=== PATIENT | female | born 1950 | race Caucasian/White ===

== ENCOUNTER → 2017-08-10 | Outpatient (CLI) | payer OTHER | END | disposition home or self-care (01) | LOC: OIH 11:32 | PROVIDERS: ATTEND Family Medicine | DX: M43.17 Spondylolisthesis, lumbosacral region (principal); I70.0 Atherosclerosis of aorta; I10 Essential (primary) hypertension | CPT/HCPCS: 71046; 72100 ==

== ENCOUNTER → 2017-08-20 | Outpatient (CLI) | payer OTHER | END | disposition home or self-care (01) | LOC: OIH 15:53 | PROVIDERS: ATTEND Family Medicine | DX: M85.88 Other specified disorders of bone density and structure, other site (principal); M25.551 Pain in right hip | CPT/HCPCS: 73502; 77073 ==

== ENCOUNTER 2017-08-21 22:15 | Emergency (ER) | payer OTHER ==
[2017-08-21] MEDS ORDERED: DIPHENHYDRAMINE HCL 25 MG CAPSULE ONE (22:36)
[2017-08-21] MEDS ORDERED: CEPHALEXIN 500 MG CAPSULE ONE (22:36)
[2017-08-21] MEDS ORDERED: METOPROLOL TARTRATE 50 MG TAB ONE (22:36)
== END 2017-08-22 00:19 | disposition home or self-care (01) ==
LOC: EDH 22:15
DX: T36.8X5A Adverse effect of other systemic antibiotics, initial encounter (principal); I10 Essential (primary) hypertension; E78.5 Hyperlipidemia, unspecified; Z88.2 Allergy status to sulfonamides; Z90.710 Acquired absence of both cervix and uterus; Z98.890 Other specified postprocedural states; Y92.098 Other place in other non-institutional residence as the place of occurrence of the external cause
CPT/HCPCS: 99284; Q0163

== ENCOUNTER 2018-06-16 01:53 | Emergency (ER) | payer OTHER ==
[~2018-06-16 01:53] MED LIST: AEC81 PO; BACL10TA PO; HYDR-4457 PO; LINA145C PO; LOSA25TA41 PO; METO50TA18 PO; PANT40TA25 PO; PRED20TA3 PO; SIMV10TA6 PO
[2018-06-16 02:35] LABS: BASOPHILS % (AUTO) 0.8 % (0.0-5.0); EOSINOPHILS % (AUTO) 0.9 % (0.0-8.0); HEMATOCRIT 39.4 % (36-48); LYMPHOCYTES % (AUTO) 33.6 % (21.0-51.0); MEAN CORPUSCULAR HEMOGLOBIN 28.1 pg (27.0-33.0); MEAN CORPUSCULAR HGB CONC 32.8 g/dL (32.0-36.0); MEAN CORPUSCULAR VOLUME 85.8 fL (79-99); MONOCYTES % (AUTO) 7.9 % (3.0-13.0); NEUTROPHILS % (AUTO) 56.8 % (40.0-77.0); PLATELET COUNT (AUTO) 207 K/uL (130-400); RED BLOOD CELL COUNT(AUTO) 4.59 MIL/uL (4.00-5.50); RED CELL DISTRIBUTION WIDTH 12.4 % (11.0-15.5); WHITE BLOOD COUNT (AUTO) 10.3 K/uL (4.8-10.8)
[2018-06-16 02:44] LABS: CREATININE 1.2 mg/dL (0.5-1.5); POTASSIUM 4.3 mmol/L (3.5-5.1)
[2018-06-16 02:49] LABS: ALBUMIN 3.4 g/dL (3.5-5.0); BILIRUBIN,TOTAL 0.2 mg/dL (0.2-1.0); TOTAL PROTEIN, SERUM 7.1 g/dL (6.0-8.3)
[2018-06-16] MEDS ORDERED: KETOROLAC TROMETHAMINE 30MG/ML ONE (02:54)
[2018-06-16] MEDS ORDERED: DIAZEPAM 5 MG TABLET ONE (02:54)
== END 2018-06-16 04:53 | disposition home or self-care (01) ==
LOC: EDH 01:53
DX: M54.6 Pain in thoracic spine (principal); E78.5 Hyperlipidemia, unspecified; I10 Essential (primary) hypertension; E11.9 Type 2 diabetes mellitus without complications; Z90.710 Acquired absence of both cervix and uterus; Z88.1 Allergy status to other antibiotic agents; Z88.2 Allergy status to sulfonamides
CPT/HCPCS: 36415; 71045; 80053; 82550; 84484; 85025; 93005; 96374; 99284; J1885

== ENCOUNTER → 2018-11-29 | Outpatient (CLI) | payer OTHER | END | disposition home or self-care (01) | LOC: OIH 14:20 | PROVIDERS: ATTEND Family Medicine | DX: S79.811A Other specified injuries of right hip, initial encounter (principal); M25.551 Pain in right hip; X58.XXXA Exposure to other specified factors, initial encounter; Y93.89 Activity, other specified; Y92.89 Other specified places as the place of occurrence of the external cause; Y99.8 Other external cause status | CPT/HCPCS: 73502 ==

== ENCOUNTER 2019-04-02 12:55 | Emergency (ER) | payer OTHER ==
[~2019-04-02 12:55] MED LIST changes: -SIMV10TA6 PO; +SIMV10TA97 PO
[2019-04-02 13:27] LABS: BASOPHILS % (AUTO) 0.8 % (0.0-5.0); EOSINOPHILS % (AUTO) 1.2 % (0.0-8.0); HEMATOCRIT 41.1 % (36-48); LYMPHOCYTES % (AUTO) 31.2 % (21.0-51.0); MEAN CORPUSCULAR HEMOGLOBIN 29.7 pg (27.0-33.0); MEAN CORPUSCULAR HGB CONC 33.6 g/dL (32.0-36.0); MEAN CORPUSCULAR VOLUME 88.5 fL (79-99); MONOCYTES % (AUTO) 13.4 % (3.0-13.0); NEUTROPHILS % (AUTO) 53.4 % (40.0-77.0); PLATELET COUNT (AUTO) 193 K/uL (130-400); RED BLOOD CELL COUNT(AUTO) 4.64 MIL/uL (4.00-5.50); RED CELL DISTRIBUTION WIDTH 12.8 % (11.0-15.5); WHITE BLOOD COUNT (AUTO) 7.4 K/uL (4.8-10.8)
[2019-04-02 13:30] LABS: APPEARANCE,URINE Clear (CLEAR); BILIRUBIN,URINE Negative (NEGATIVE); COLOR,URINE Yellow (YELLOW); GLUCOSE, URINE (UA) Negative (NEGATIVE); KETONES,URINE Negative (NEGATIVE); LEUKOCYTE ESTERASE ,URINE Small (NEGATIVE); NITRATE,URINE Negative (NEGATIVE); OCCULT BLOOD,URINE Negative (NEGATIVE); PROTEIN,URINE Negative (NEGATIVE); UROBILINOGEN,URINE 0.2 mg/dL (0.2-1.0)
[2019-04-02 13:34] LABS: CREATININE 0.9 mg/dL (0.5-1.5)
[2019-04-02 13:38] LABS: INR 0.89 (0.85-1.15); PARTIAL THROMBOPLASTIN TIME 27.5 SEC (26.3-35.5); PROTHROMBIN TIME 9.4 SEC (9.6-11.6)
[2019-04-02 13:40] LABS: BACTERIA,URINE Rare /HPF (None Seen); RBC,URINE None Seen /HPF (0-1)
[2019-04-02 13:40] LABS: ALBUMIN 3.4 g/dL (3.5-5.0); BILIRUBIN,TOTAL 0.4 mg/dL (0.2-1.0); TOTAL PROTEIN, SERUM 7.4 g/dL (6.0-8.3)
[2019-04-02 14:02] LABS: B-TYPE NATRIURETIC PEPTIDE 51 pg/mL (0-100)
[2019-04-02] MEDS ORDERED: LEVOFLOXACIN 500 MG TABLET ONE (16:32)
== END 2019-04-02 16:53 | disposition home or self-care (01) ==
LOC: EDH 12:55
DX: A09 Infectious gastroenteritis and colitis, unspecified (principal); N39.0 Urinary tract infection, site not specified; I10 Essential (primary) hypertension; E86.0 Dehydration; E11.9 Type 2 diabetes mellitus without complications; E78.5 Hyperlipidemia, unspecified; Z90.710 Acquired absence of both cervix and uterus; Z72.0 Tobacco use; Z88.2 Allergy status to sulfonamides; Z88.1 Allergy status to other antibiotic agents
CPT/HCPCS: 36415; 71045; 76705; 80053; 81001; 82150; 82550; 83690; 83880; 84484; 85025; 85610; 85730; 87077; 87088; 87186; 87804; 93005

== ENCOUNTER 2019-09-08 17:05 | Inpatient (IN) | payer OTHER ==
[~2019-09-08] VITALS: Ht 165.1 cm; Wt 77.1 kg
[~2019-09-08 17:05] MED LIST changes: -CETI10TA57 PO; -GABA-529 PO; -MECL-183 PO; -MULT-1258 PO; -PANT40TA25 PO; +PANT40TA54 PO
[2019-09-08] MEDS ORDERED: NITROGLYCERIN 1GM/1 INCH PACKET TD ONE (17:11)
[2019-09-08] MEDS ORDERED: ASPIRIN 325 MG TABLET ONE (17:11)
[2019-09-08 17:36] LABS: BASOPHILS % (AUTO) 0.4 % (0.0-5.0); HEMATOCRIT 40.8 % (36-48); LYMPHOCYTES % (AUTO) 21.9 % (21.0-51.0); MEAN CORPUSCULAR HEMOGLOBIN 28.3 pg (27.0-33.0); MEAN CORPUSCULAR HGB CONC 31.4 g/dL (32.0-36.0); MEAN CORPUSCULAR VOLUME 90.3 fL (79-99); MONOCYTES % (AUTO) 6.3 % (3.0-13.0); PLATELET COUNT (AUTO) 226 K/uL (130-400); RED BLOOD CELL COUNT(AUTO) 4.52 MIL/uL (4.00-5.50); RED CELL DISTRIBUTION WIDTH 13.3 % (11.0-15.5); WHITE BLOOD COUNT (AUTO) 11.3 K/uL (4.8-10.8)
[2019-09-08 17:37] LABS: INR 0.87 (0.85-1.15); PARTIAL THROMBOPLASTIN TIME 26.5 SEC (26.3-35.5); PROTHROMBIN TIME 9.4 SEC (9.6-11.6)
[2019-09-08 17:58] LABS: B-TYPE NATRIURETIC PEPTIDE 45 pg/mL (0-100)
[2019-09-08 18:01] LABS: ALBUMIN 3.5 g/dL (3.5-5.0); BILIRUBIN,TOTAL 0.3 mg/dL (0.2-1.0); TOTAL PROTEIN, SERUM 6.9 g/dL (6.0-8.3)
[2019-09-08 19:20] LABS: APPEARANCE,URINE Clear (CLEAR); BILIRUBIN,URINE Negative (NEGATIVE); COLOR,URINE Yellow (YELLOW); GLUCOSE, URINE (UA) Negative (NEGATIVE); KETONES,URINE Negative (NEGATIVE); LEUKOCYTE ESTERASE ,URINE Trace (NEGATIVE); NITRATE,URINE Negative (NEGATIVE); OCCULT BLOOD,URINE Negative (NEGATIVE); PROTEIN,URINE Negative (NEGATIVE)
[2019-09-08 19:33] LABS: BACTERIA,URINE Moderate /HPF (None Seen); RBC,URINE 0-1 /HPF (0-1); SQUAMOUS EPITHELIAL CELL,UR Few /HPF (0-2)
[2019-09-08] MEDS ORDERED: ZOLPIDEM TARTRATE 5 MG TAB PO PRN (21:15)
[2019-09-08] MEDS ORDERED: GLUCAGON 1MG KIT 1 MG ML IM PRN (21:15)
[2019-09-08] MEDS ORDERED: GUAIFENESIN SUGAR-FREE 100 MG/5 ML UDCUP PO PRN (21:15)
[2019-09-08] MEDS ORDERED: LACTULOSE 20 GM/30 ML UDCUP PO PRN (21:15)
[2019-09-08] MEDS ORDERED: POTASSIUM CHLORIDE 10% ELIXIR 20 MEQ/15 ML UDCUP PO PRN (21:15)
[2019-09-08] MEDS ORDERED: NITROGLYCERIN 0.4 MG SL TAB SL PRN (21:15)
[2019-09-08] MEDS ORDERED: MAG HYDROX/AL HYDROX/SIMETH ES 30 ML SUSP UDCUP PO PRN (21:15)
[2019-09-08] MEDS ORDERED: SODIUM CHLORIDE 0.9% 10 ML VIAL IVP SCH (21:15)
[2019-09-08] MEDS ORDERED: DEXTROSE 50%-WATER 50 ML DISP.SYRIN IV PRN (21:15)
[2019-09-08] MEDS ORDERED: ACETAMINOPHEN 325 MG TAB PO PRN (21:15)
[2019-09-08] MEDS ORDERED: GUAIFENESIN-DM 200/20 MG 10 ML PO PRN (21:15)
[2019-09-08] MEDS ORDERED: LIDOCAINE HCL-MPF 1% 2ML VIAL IJ PRN (21:15)
[2019-09-08] MEDS ORDERED: DIPHENHYDRAMINE HCL 25 MG CAPSULE PO PRN (21:15)
[2019-09-08] MEDS ORDERED: POTASSIUM CHLORIDE 20MEQ/100ML 100 ML IV PRN (21:15)
[2019-09-08] MEDS ORDERED: ONDANSETRON HCL 4 MG/2 ML VIAL IVP PRN (21:15)
[2019-09-08] MEDS ORDERED: POTASSIUM CHLORIDE 20 MEQ ERTAB PO PRN (21:15)
[2019-09-08] MEDS ORDERED: CLONIDINE HCL 0.1 MG TABLET PO PRN (21:15)
[2019-09-08] MEDS ORDERED: DiphenhydrAMINE HCL 50 MG/ML VIAL IVP PRN (21:15)
[2019-09-08] MEDS: NITROGLYCERIN 1GM/1 INCH PACKET TD SCH (21:30)
[2019-09-08 22:35] VITALS: BP 181/75
[2019-09-08] MEDS ORDERED: MULT-1258 PO (23:21)
[2019-09-08] MEDS ORDERED: GABA-529 PO (23:21)
[2019-09-08] MEDS ORDERED: CETI10TA57 PO (23:21)
[2019-09-08] MEDS ORDERED: MECL-183 PO (23:21)
[2019-09-08] MEDS: ACETAMINOPHEN 325 MG TAB PO PRN (23:59)
[2019-09-09 00:42] LABS: CREATINE KINASE, TOTAL 69 U/L (21-232); MYOGLOBIN 30 ng/mL (10-92); TROPONIN I < 0.04 ng/mL (0.00-0.06)
[2019-09-09 03:01] VITALS: BP 164/84
[2019-09-09 03:41] LABS: HEMATOCRIT 38.9 % (36-48); MEAN CORPUSCULAR HGB CONC 31.4 g/dL (32.0-36.0); MEAN CORPUSCULAR VOLUME 89.4 fL (79-99); RED BLOOD CELL COUNT(AUTO) 4.35 MIL/uL (4.00-5.50); RED CELL DISTRIBUTION WIDTH 13.2 % (11.0-15.5)
[2019-09-09 04:05] LABS: ALBUMIN 3.4 g/dL (3.5-5.0); BILIRUBIN,TOTAL 0.7 mg/dL (0.2-1.0); MAGNESIUM 2.1 mg/dL (1.80-2.40); PHOSPHORUS 3.6 mg/dL (2.5-4.9); POTASSIUM 4.1 mmol/L (3.5-5.1); TOTAL PROTEIN, SERUM 6.7 g/dL (6.0-8.3)
[2019-09-09] MEDS: NITROGLYCERIN 1GM/1 INCH PACKET TD SCH ×3 (04:55→21:30)
[2019-09-09] MEDS: ACETAMINOPHEN 325 MG TAB PO PRN (04:56)
[2019-09-09] MEDS: INSULIN R PO SS2 SQ SCH ×4 (05:29→20:31)
[2019-09-09] MEDS ORDERED: REGADENOSON 0.4 MG/5 ML PF SYG IVP SCH ×2 (08:00→11:45)
[2019-09-09 08:38] VITALS: BP 137/77
[2019-09-09] MEDS: ENOXAPARIN SODIUM 30 MG/0.3 ML SQ SCH ×2 (09:00→22:09)
[2019-09-09] MEDS: FAMOTIDINE 20MG TAB 20 MG TAB PO SCH (09:26)
[2019-09-09] MEDS: METOPROLOL TARTRATE 50 MG TAB PO SCH ×2 (09:26→22:07)
[2019-09-09 11:00] VITALS: BP 145/73
--- NOTE | 2019-09-09 11:04 | NUR ---
CM NOTE/IA MEET WITH PATIENT IN ROOM. PER PATIENT, LIVES WITH SPOUSE AND SISTER, IS INDEPENDENT WITH ADLS, HAS USE OF CANE, ROLLATOR WALKER, AND SHOWER CHAIR, DRIVES, AND FEELS SAFE TO RETURN HOME ONCE DISCHARGED FROM HOSPITAL. Addendum: 09/09/19 at 1105 by MAGAN KISER RN CM Amended: Links added.
[2019-09-09 16:00] VITALS: BP 138/77
[2019-09-09] MEDS: ASPIRIN 325 MG TABLET PO SCH (16:03)
[2019-09-09] MEDS ORDERED: CEFTRIAXONE SODIUM 500 MG VIAL IV SCH (16:45)
[2019-09-09] MEDS ORDERED: MECLIZINE HCL 12.5 MG TABLET PO PRN (17:00)
[2019-09-09] MEDS ORDERED: LEVOFLOXACIN 500 MG/D5W 100 ML 100 ML IV SCH (17:00)
[2019-09-09 19:38] VITALS: BP 140/76
[2019-09-09] MEDS: GABAPENTIN 100 MG CAPSULE PO SCH (22:07)
[2019-09-09 23:51] VITALS: BP 155/65
[2019-09-10 04:00] VITALS: BP 126/74
[2019-09-10] MEDS: NITROGLYCERIN 1GM/1 INCH PACKET TD SCH ×2 (05:30→13:30)
[2019-09-10 07:30] VITALS: BP 122/75
[2019-09-10] MEDS: INSULIN R PO SS2 SQ SCH ×3 (07:30→16:30)
--- NOTE | 2019-09-10 07:58 | NUR ---
PATIENT UPDATE No chest pain, no shortness of breath. Abdominal ultrasound done. Refused the nitropaste ointment last night and this am bec of severe headaches. Looking forward to getting discharged today.
[2019-09-10] MEDS: ENOXAPARIN SODIUM 30 MG/0.3 ML SQ SCH (09:00)
[2019-09-10] MEDS ORDERED: Vitamin B Complex/Vit C/Folic Acid PO SCH (09:00)
[2019-09-10] MEDS ORDERED: LOSARTAN 50 MG TABLET PO SCH (09:00)
[2019-09-10] MEDS: GABAPENTIN 100 MG CAPSULE PO SCH ×2 (10:18→14:31)
[2019-09-10] MEDS: FAMOTIDINE 20MG TAB 20 MG TAB PO SCH (10:18)
[2019-09-10] MEDS: METOPROLOL TARTRATE 50 MG TAB PO SCH (10:18)
[2019-09-10] MEDS: ASPIRIN 325 MG TABLET PO SCH (10:19)
[2019-09-10 11:14] LABS: HEMATOCRIT 40.8 % (36-48); MEAN CORPUSCULAR HEMOGLOBIN 28.7 pg (27.0-33.0); MEAN CORPUSCULAR HGB CONC 31.6 g/dL (32.0-36.0); MEAN CORPUSCULAR VOLUME 90.9 fL (79-99); PLATELET COUNT (AUTO) 209 K/uL (130-400); RED BLOOD CELL COUNT(AUTO) 4.49 MIL/uL (4.00-5.50); RED CELL DISTRIBUTION WIDTH 13.5 % (11.0-15.5); WHITE BLOOD COUNT (AUTO) 7.1 K/uL (4.8-10.8)
[2019-09-10 11:29] LABS: POTASSIUM 4.2 mmol/L (3.5-5.1)
[2019-09-10 11:30] VITALS: BP 114/61
[2019-09-10 12:05] LABS: EOSINOPHILS % (MANUAL) 2 % (1-6); LYMPHOCYTES % (MANUAL) 38 % (22-44); MAN.DIFF COMMENT-IMPRESSION MANUAL DIFFERENTIAL; MONOCYTES % (MANUAL) 12 % (2-9); PLATELET MORPHOLOGY COMMENT ADEQUATE; SEGMENTED NEUTROPHILS % 48 % (40-70)
[2019-09-10 13:14] LABS: ALBUMIN 3.4 g/dL (3.5-5.0); BILIRUBIN,TOTAL 0.4 mg/dL (0.2-1.0); TOTAL PROTEIN, SERUM 7.1 g/dL (6.0-8.3)
[2019-09-10 15:30] VITALS: BP 142/63
--- NOTE | 2019-09-10 17:25 | NUR ---
DISCHARGE INSTRUCTIONS DISCHARGE INSTRUCTIONS GIVEN TO PATIENT, VERBALIZED UNDERSTANDING. PRESCRIPTION GIVEN FOR LEVAQUIN. PATIENT IS TO FOLLOW UP WITH DR LUO THROUGH [facility]LE[facility] ON THURSDAY. IV DISCONTINUED. MAITE KAMARA.
== END 2019-09-10 17:48 | disposition home or self-care (01) | DRG 311 ==
LOC: EDH 17:05 → EDHIP 20:50 → 4CH 22:17 → 4AH 09-09 12:20 → 4CH 09-09 12:25
PROVIDERS: ADMIT Family Medicine; ATTEND Family Medicine
DX: I20.9 Angina pectoris, unspecified (principal); N39.0 Urinary tract infection, site not specified; E11.9 Type 2 diabetes mellitus without complications; E78.5 Hyperlipidemia, unspecified; I10 Essential (primary) hypertension; K76.9 Liver disease, unspecified; K82.8 Other specified diseases of gallbladder; N28.9 Disorder of kidney and ureter, unspecified; Z90.710 Acquired absence of both cervix and uterus; Z88.2 Allergy status to sulfonamides; Z88.8 Allergy status to other drugs, medicaments and biological substances
CPT/HCPCS: 36415; 71045; 76700; 77067; 78452; 80053; 81001; 82550; 82948; 83690; 83735; 83874; 83880; 84100; 84484; 85025; 85027; 85610; 85730; 87077; 87088; 87186; 93005; 93017; 93306; 93356; 96374; 99291; A9500; G0378; J0696; J1650; J1956; J2405; J2785

== ENCOUNTER → 2019-09-08 | Outpatient (CLI) | payer OTHER ==
[~2019-09-08] MED LIST changes: +CETI10TA57 PO; +GABA-529 PO; +MECL-183 PO; +MULT-1258 PO
== END | disposition home or self-care (01) ==
LOC: RAH 10:12
PROVIDERS: ATTEND Family Medicine
DX: Z12.31 Encounter for screening mammogram for malignant neoplasm of breast (principal)
CPT/HCPCS: 77067

== ENCOUNTER → 2019-10-07 | Outpatient (CLI) | payer OTHER ==
[~2019-10-07] MED LIST changes: -BACL10TA PO; +CETI10TA57 PO; +GABA-529 PO; -HYDR-4457 PO; -LINA145C PO; +MECL-183 PO; +MULT-1258 PO; -PANT40TA54 PO; -PRED20TA3 PO; +SINCALIDE 5 MCG ML VIAL IV ONE
== END | disposition home or self-care (01) ==
LOC: RAH 10:52
PROVIDERS: ATTEND Family Medicine
DX: K81.0 Acute cholecystitis (principal); Q44.6 Cystic disease of liver
CPT/HCPCS: 78227; A9537; J2805

== ENCOUNTER → 2019-10-21 | Outpatient (CLI) | payer OTHER ==
[~2019-10-21] MED LIST changes: +IOHEXOL 350 MG/ML 100ML INFUS..BTL IV ONE; -SINCALIDE 5 MCG ML VIAL IV ONE
== END | disposition home or self-care (01) ==
LOC: RAH 07:45
PROVIDERS: ATTEND Family Medicine
DX: K44.9 Diaphragmatic hernia without obstruction or gangrene (principal); N28.1 Cyst of kidney, acquired; Q44.6 Cystic disease of liver; J98.11 Atelectasis
CPT/HCPCS: 74170; 76770; Q9967

== ENCOUNTER 2019-11-06 02:33 | Emergency (ER) | payer OTHER ==
[~2019-11-06 02:33] MED LIST changes: -IOHEXOL 350 MG/ML 100ML INFUS..BTL IV ONE
[2019-11-06] MEDS ORDERED: ONDANSETRON ODT 4 MG TAB ONE (03:04)
[2019-11-06] MEDS ORDERED: HYDROCODONE/ACETAMINOPHEN 10/325 MG TAB ONE (03:04)
[2019-11-06] MEDS ORDERED: MORPHINE SULFATE 8 MG/ML VIAL ONE (04:10)
== END 2019-11-06 06:06 | disposition home or self-care (01) ==
LOC: EDH 02:33
DX: B02.9 Zoster without complications (principal); E11.9 Type 2 diabetes mellitus without complications; E78.5 Hyperlipidemia, unspecified; I10 Essential (primary) hypertension; Z87.891 Personal history of nicotine dependence; Z90.49 Acquired absence of other specified parts of digestive tract; Z90.710 Acquired absence of both cervix and uterus; Z88.2 Allergy status to sulfonamides; Z88.1 Allergy status to other antibiotic agents
CPT/HCPCS: 96372; 99283; J2270

== ENCOUNTER 2020-12-02 11:28 | Observation (INO) | payer OTHER ==
[~2020-12-02] VITALS: Ht 165.1 cm; Wt 84.8 kg
[~2020-12-02 11:28] MED LIST changes: -MECL-183 PO; +MECL-226 PO
[2020-12-02 11:30] VITALS: BP 188/88
[2020-12-02 12:01] LABS: BASOPHILS % (AUTO) 0.5 % (0.0-5.0); EOSINOPHILS % (AUTO) 1.1 % (0.0-8.0); HEMATOCRIT 40.4 % (36-48); LYMPHOCYTES % (AUTO) 36.3 % (21.0-51.0); MEAN CORPUSCULAR HEMOGLOBIN 28.2 pg (27.0-33.0); MEAN CORPUSCULAR HGB CONC 31.4 g/dL (32.0-36.0); MEAN CORPUSCULAR VOLUME 89.8 fL (79-99); MONOCYTES % (AUTO) 8.8 % (3.0-13.0); PLATELET COUNT (AUTO) 224 K/uL (130-400); RED CELL DISTRIBUTION WIDTH 12.9 % (11.0-15.5); WHITE BLOOD COUNT (AUTO) 6.6 K/uL (4.8-10.8)
[2020-12-02 12:16] LABS: INR 0.95 (0.85-1.15); PROTHROMBIN TIME 10.4 SEC (9.6-11.6)
[2020-12-02 12:17] LABS: PARTIAL THROMBOPLASTIN TIME 27.6 SEC (26.3-35.5)
[2020-12-02 12:20] LABS: ALBUMIN 3.5 g/dL (3.5-5.0); BILIRUBIN,TOTAL 0.3 mg/dL (0.2-1.0); CREATININE 0.9 mg/dL (0.5-1.5); POTASSIUM 4.2 mmol/L (3.5-5.1); TOTAL PROTEIN, SERUM 7.2 g/dL (6.0-8.3)
[2020-12-02 12:23] LABS: APPEARANCE,URINE Clear (CLEAR); BILIRUBIN,URINE Negative (NEGATIVE); COLOR,URINE Yellow (YELLOW); GLUCOSE, URINE (UA) Negative (NEGATIVE); KETONES,URINE Negative (NEGATIVE); LEUKOCYTE ESTERASE ,URINE Small (NEGATIVE); NITRATE,URINE Negative (NEGATIVE); OCCULT BLOOD,URINE Negative (NEGATIVE); PROTEIN,URINE Negative (NEGATIVE); UROBILINOGEN,URINE 0.2 mg/dL (0.2-1.0)
[2020-12-02] MEDS ORDERED: PANTOPRAZOLE 40 MG/VIAL IVP SCH (12:30)
[2020-12-02] MEDS ORDERED: 0.9%NACL 1000ML 1,000 ML IV SCH (12:30)
[2020-12-02] MEDS ORDERED: ACETAMINOPHEN 325 MG TAB PO SCH (12:30)
[2020-12-02] MEDS ORDERED: ONDANSETRON 4MG INJ IVP SCH (12:30)
[2020-12-02] MEDS ORDERED: MORPHINE 4 MG SYG IVP SCH (12:30)
[2020-12-02] MEDS ORDERED: HYDRALAZINE 20MG/ML VIAL IV SCH (12:30)
[2020-12-02] MEDS ORDERED: ASPIRIN 325MG TAB PO SCH (12:30)
[2020-12-02 12:37] LABS: B-TYPE NATRIURETIC PEPTIDE 64 pg/mL (0-100)
[2020-12-02] MEDS ORDERED: IOHEXOL 350 MG/ML 100ML INFUS..BTL IV ONE (12:49)
[2020-12-02 13:08] LABS: BACTERIA,URINE Few /HPF (None Seen); RBC,URINE 0-1 /HPF (0-1)
[2020-12-02 13:37] VITALS: BP 155/73
[2020-12-02] MEDS ORDERED: CLONIDINE HCL 0.1 MG TABLET PO PRN (16:00)
[2020-12-02] MEDS ORDERED: ASPIRIN 325MG TAB PO ONE (16:00)
[2020-12-02] MEDS ORDERED: MORPHINE 2 MG SYG IVP PRN (16:00)
[2020-12-02] MEDS ORDERED: ACETAMINOPHEN 650 MG SUPPOSITORY RC PRN (16:00)
[2020-12-02] MEDS ORDERED: HYDRALAZINE 20MG/ML VIAL IV PRN (16:00)
[2020-12-02] MEDS ORDERED: ONDANSETRON 4MG INJ IVP PRN (16:00)
[2020-12-02] MEDS: INSULIN HUMULIN R 100 UNIT/ML 3ML SQ SCH ×2 (16:30→21:00)
[2020-12-02 16:43] LABS: AMYLASE 46 U/L (25-115); CREATINE KINASE, TOTAL 85 U/L (21-232); LIPASE 142 U/L (114-286); MYOGLOBIN 53 ng/mL (10-92); TROPONIN I < 0.04 ng/mL (0.00-0.06)
[2020-12-02] MEDS: LACTATED RINGERS 1000ML 1,000 ML IV SCH (17:11)
[2020-12-02] MEDS: ZOSYN 3.375GM +NS 50ML IV SCH ×2 (17:12→23:35)
[2020-12-02] MEDS ORDERED: GABA-529 PO (17:19)
[2020-12-02] MEDS ORDERED: OXYB10TA30 PO (17:19)
[2020-12-02] MEDS ORDERED: SIMV10TA97 PO (17:19)
[2020-12-02] MEDS ORDERED: LOSA25TA41 PO (17:19)
[2020-12-02 17:43] VITALS: BP 136/68
[2020-12-02] MEDS: ACETAMINOPHEN 325 MG TAB PO PRN (19:29)
[2020-12-02 20:06] VITALS: BP 169/64
[2020-12-02 21:45] VITALS: BP 182/71
[2020-12-02] MEDS ORDERED: OMEP40CA21 PO (22:33)
[2020-12-02] MEDS ORDERED: LOSARTAN 25 MG TABLET PO STA (22:47)
[2020-12-02] MEDS ORDERED: METOPROLOL TARTRATE 50 MG TAB PO STA (22:47)
[2020-12-02] MEDS ORDERED: GABAPENTIN 100 MG CAPSULE PO STA (22:51)
[2020-12-02 23:22] LABS: CREATINE KINASE, TOTAL 84 U/L (21-232); MYOGLOBIN 74 ng/mL (10-92); TROPONIN I < 0.04 ng/mL (0.00-0.06)
[2020-12-02 23:52] VITALS: BP 158/67
[2020-12-03 03:25] VITALS: BP 100/57
[2020-12-03] MEDS: ACETAMINOPHEN 325 MG TAB PO PRN (03:29)
[2020-12-03] MEDS: LACTATED RINGERS 1000ML 1,000 ML IV SCH (05:30)
[2020-12-03 05:46] LABS: BASOPHILS % (AUTO) 0.5 % (0.0-5.0); EOSINOPHILS % (AUTO) 1.1 % (0.0-8.0); HEMATOCRIT 38.3 % (36-48); MEAN CORPUSCULAR HGB CONC 30.8 g/dL (32.0-36.0); MONOCYTES % (AUTO) 9.4 % (3.0-13.0); NEUTROPHILS % (AUTO) 57.6 % (40.0-77.0); PLATELET COUNT (AUTO) 198 K/uL (130-400); RED BLOOD CELL COUNT(AUTO) 4.21 MIL/uL (4.00-5.50); WHITE BLOOD COUNT (AUTO) 7.5 K/uL (4.8-10.8)
[2020-12-03 05:56] LABS: INR 0.98 (0.85-1.15); PROTHROMBIN TIME 10.7 SEC (9.6-11.6)
[2020-12-03 06:05] LABS: CARBON DIOXIDE 28 mmol/L (21-32); CHLORIDE 108 mmol/L (101-111); CREATININE 0.9 mg/dL (0.5-1.5); GLOMERULAR FILTR. RATE CALC 66 mL/min (>60); GLUCOSE,RANDOM 101 mg/dL (70-105); POTASSIUM 3.8 mmol/L (3.5-5.1); SODIUM SERUM 144 mmol/L (136-145); UREA NITROGEN, BLOOD 13 mg/dL (7-18)
[2020-12-03 06:06] LABS: B-TYPE NATRIURETIC PEPTIDE 42 pg/mL (0-100)
[2020-12-03 06:08] LABS: CHOLESTEROL 181 mg/dL (<200); CREATINE KINASE, TOTAL 83 U/L (21-232); HDL CHOLESTEROL 51 mg/dL (35-85); LDL DIRECT 109 mg/dL (0-99); TRIGLYCERIDES 131 mg/dL (30-200); TROPONIN I < 0.04 ng/mL (0.00-0.06)
[2020-12-03] MEDS: INSULIN HUMULIN R 100 UNIT/ML 3ML SQ SCH ×2 (06:31→11:30)
[2020-12-03 06:54] LABS: MYOGLOBIN 64 ng/mL (10-92)
[2020-12-03 07:25] VITALS: BP 159/72
[2020-12-03] MEDS ORDERED: PANTOPRAZOLE 40 MG TAB DR PO SCH ×2 (07:30→09:00)
[2020-12-03] MEDS: POLYETHYLENE GLYCOL 3350 17 GM POWD.PACK PO SCH ×2 (09:00→09:44)
[2020-12-03] MEDS ORDERED: ENOXAPARIN SODIUM 40 MG/0.4 ML SYRINGE SQ SCH (09:00)
[2020-12-03] MEDS ORDERED: OXYBUTYNIN 5 MG TAB.SR.24H PO SCH (09:00)
[2020-12-03] MEDS ORDERED: METOPROLOL TARTRATE 50 MG TAB PO SCH (09:00)
[2020-12-03] MEDS ORDERED: ASPIRIN 81MG CHEW TAB PO SCH (09:00)
[2020-12-03] MEDS ORDERED: LOSARTAN 25 MG TABLET PO SCH (09:00)
[2020-12-03] MEDS: ZOSYN 3.375GM +NS 50ML IV SCH (09:44)
[2020-12-03] MEDS: GABAPENTIN 100 MG CAPSULE PO SCH ×2 (09:45→15:31)
[2020-12-03 11:17] VITALS: BP 143/76
[2020-12-03] MEDS ORDERED: NITROGLYCERIN 0.4 MG SL TAB SL PRN (11:30)
[2020-12-03] MEDS ORDERED: LEVO500T89 PO (12:50)
[2020-12-03 15:57] VITALS: BP 150/57
[2020-12-03] MEDS ORDERED: SIMVASTATIN 10 MG TABLET PO SCH (17:00)
== END 2020-12-03 18:20 | disposition home or self-care (01) ==
LOC: EDH 11:28 → EDHIP 15:53 → 3CH 20:36
PROVIDERS: ADMIT Internal Medicine; ATTEND Internal Medicine
DX: R07.89 Other chest pain (principal); Z20.822 Contact with and (suspected) exposure to COVID-19; I16.0 Hypertensive urgency; R10.13 Epigastric pain; E11.9 Type 2 diabetes mellitus without complications; E78.00 Pure hypercholesterolemia, unspecified; M19.90 Unspecified osteoarthritis, unspecified site; M81.0 Age-related osteoporosis without current pathological fracture; K21.9 Gastro-esophageal reflux disease without esophagitis; R32 Unspecified urinary incontinence; K57.90 Diverticulosis of intestine, part unspecified, without perforation or abscess without bleeding; M54.9 Dorsalgia, unspecified; G89.29 Other chronic pain; K76.0 Fatty (change of) liver, not elsewhere classified; K80.50 Calculus of bile duct without cholangitis or cholecystitis without obstruction; R11.0 Nausea; Z79.82 Long term (current) use of aspirin; Z79.899 Other long term (current) drug therapy; Z85.828 Personal history of other malignant neoplasm of skin; Z87.891 Personal history of nicotine dependence; Z88.2 Allergy status to sulfonamides; Z90.710 Acquired absence of both cervix and uterus; Z98.51 Tubal ligation status; Z98.49 Cataract extraction status, unspecified eye; Z98.890 Other specified postprocedural states
CPT/HCPCS: 36415; 71045; 74177; 76705; 80048; 80053; 80061; 81001; 82150; 82550; 82948; 83036; 83605; 83690; 83735; 83874; 83880; 84100; 84484; 85025; 85378; 85610; 85730; 87040; 87635; 87804; 93005; 96361; 96365; 96366; 96372; 96375; C9113; G0378; J0360; J1650; J2270; J2405; J2543; J7030; J7120; Q9967

== ENCOUNTER → 2021-11-14 | Outpatient (CLI) | payer OTHER ==
[~2021-11-14] MED LIST changes: -CETI10TA57 PO; +LEVO500T90 PO; +LIDOCAINE HCL 4% LTA SOL 4 ML VIAL TP ONE; -MECL-226 PO; -MULT-1258 PO; +OMEP40CA21 PO; +OXYB10TA30 PO
== END | disposition home or self-care (01) ==
LOC: WHH 08:43
PROVIDERS: ATTEND Family Medicine
DX: S81.802D Unspecified open wound, left lower leg, subsequent encounter (principal); E11.628 Type 2 diabetes mellitus with other skin complications; E66.9 Obesity, unspecified; Z68.31 Body mass index [BMI] 31.0-31.9, adult; Z87.891 Personal history of nicotine dependence; Z79.82 Long term (current) use of aspirin; Z79.899 Other long term (current) drug therapy; W22.8XXD Striking against or struck by other objects, subsequent encounter
CPT/HCPCS: 11042; A6212; A6021; A6197

== ENCOUNTER → 2022-07-21 | Outpatient (CLI) | payer OTHER ==
[~2022-07-21] MED LIST changes: +LEVO-70 PO; -LEVO500T90 PO; -LIDOCAINE HCL 4% LTA SOL 4 ML VIAL TP ONE
== END | disposition home or self-care (01) ==
LOC: RAH 10:48
PROVIDERS: ATTEND Nurse Practitioner Family
DX: Z12.31 Encounter for screening mammogram for malignant neoplasm of breast (principal)
CPT/HCPCS: 77067

== ENCOUNTER 2022-09-11 10:23 | Emergency (ER) | payer OTHER ==
[~2022-09-11] VITALS: Ht 165.1 cm; Wt 78.5 kg
[2022-09-11 10:28] VITALS: BP 178/79
[2022-09-11 10:52] LABS: BASOPHILS % (AUTO) 0.5 % (0.0-5.0); EOSINOPHILS % (AUTO) 1.4 % (0.0-8.0); HEMATOCRIT 40.5 % (36-48); LYMPHOCYTES % (AUTO) 38.3 % (21.0-51.0); MEAN CORPUSCULAR HEMOGLOBIN 28.5 pg (27.0-33.0); MEAN CORPUSCULAR HGB CONC 32.3 g/dL (32.0-36.0); MONOCYTES % (AUTO) 7.2 % (3.0-13.0); NEUTROPHILS % (AUTO) 52.4 % (40.0-77.0); PLATELET COUNT (AUTO) 218 K/uL (130-400); WHITE BLOOD COUNT (AUTO) 6.6 K/uL (4.8-10.8)
[2022-09-11] MEDS ORDERED: ATOR10 PO (10:58)
[2022-09-11] MEDS ORDERED: PANT40TA54 PO (10:58)
[2022-09-11] MEDS ORDERED: MONT-39 PO (10:58)
[2022-09-11] MEDS ORDERED: GABA-533 PO (10:58)
[2022-09-11] MEDS ORDERED: LOSA100T59 PO (10:58)
[2022-09-11] MEDS ORDERED: LORA10TA7 PO (10:58)
[2022-09-11 11:02] LABS: POTASSIUM 4.4 mmol/L (3.5-5.1)
[2022-09-11 11:07] LABS: ALBUMIN 3.8 g/dL (3.5-5.0); TOTAL PROTEIN, SERUM 7.5 g/dL (6.0-8.3)
[2022-09-11] MEDS ORDERED: ALEN70TA80 PO (11:33)
[2022-09-11] MEDS ORDERED: MULT-1250 PO (11:33)
[2022-09-11] MEDS ORDERED: AMLO2.5T4 PO (11:33)
[2022-09-11] MEDS ORDERED: FAMO40TA7 PO (11:33)
[2022-09-11] MEDS ORDERED: ALBU90AE2 IH (11:33)
[2022-09-11] MEDS ORDERED: FLUT1BLS3 IH (11:33)
[2022-09-11] MEDS ORDERED: ASCO500C18 PO (11:33)
[2022-09-11 11:52] LABS: APPEARANCE,URINE CLEAR (CLEAR); BILIRUBIN,URINE NEGATIVE (NEGATIVE); COLOR,URINE LIGHT-YELLOW (YELLOW); GLUCOSE, URINE (UA) NEGATIVE (NEGATIVE); KETONES,URINE NEGATIVE (NEGATIVE); LEUKOCYTE ESTERASE ,URINE 250 Leu/uL (NEGATIVE); NITRATE,URINE 2+ (NEGATIVE); OCCULT BLOOD,URINE NEGATIVE (NEGATIVE); PH,URINE 7.5 (5.0-8.0); PROTEIN,URINE NEGATIVE (NEGATIVE); UROBILINOGEN,URINE 0.2 mg/dL (0.2-1.0)
[2022-09-11] MEDS ORDERED: CEFTRIAXONE 1G VIAL IVPB ONE (12:00)
[2022-09-11] MEDS ORDERED: MACR100 PO (12:01)
[2022-09-11 12:02] LABS: BACTERIA,URINE RARE /HPF (None Seen); MUCUS,URINE RARE LPF (None Seen); SQUAMOUS EPITHELIAL CELL,UR RARE /HPF (0-2); WBC,URINE 26-50 /HPF (0-1)
== END 2022-09-11 12:25 | disposition home or self-care (01) ==
LOC: EDH 10:23
DX: R10.13 Epigastric pain (principal); N39.0 Urinary tract infection, site not specified; E11.9 Type 2 diabetes mellitus without complications; E78.00 Pure hypercholesterolemia, unspecified; I10 Essential (primary) hypertension; M19.90 Unspecified osteoarthritis, unspecified site; F17.200 Nicotine dependence, unspecified, uncomplicated; Z79.82 Long term (current) use of aspirin; Z79.899 Other long term (current) drug therapy; Z88.1 Allergy status to other antibiotic agents; Z88.2 Allergy status to sulfonamides
CPT/HCPCS: 36415; 71045; 80053; 81001; 83690; 85025; 87077; 87088; 87186; 93005

== ENCOUNTER 2022-10-17 06:45 | Day surgery (SDC) | payer OTHER ==
[2022-10-13 10:24] VITALS: BP 163/69
[2022-10-13 10:30] LABS: BASOPHILS % (AUTO) 1.1 % (0.0-5.0); EOSINOPHILS % (AUTO) 1.2 % (0.0-8.0); HEMATOCRIT 40.7 % (36-48); LYMPHOCYTES % (AUTO) 36.3 % (21.0-51.0); MEAN CORPUSCULAR HEMOGLOBIN 27.9 pg (27.0-33.0); MEAN CORPUSCULAR VOLUME 90.2 fL (79-99); MONOCYTES % (AUTO) 8.9 % (3.0-13.0); NEUTROPHILS % (AUTO) 52.2 % (40.0-77.0); PLATELET COUNT (AUTO) 222 K/uL (130-400); RED BLOOD CELL COUNT(AUTO) 4.51 MIL/uL (4.00-5.50); RED CELL DISTRIBUTION WIDTH 12.7 % (11.0-15.5); WHITE BLOOD COUNT (AUTO) 6.7 K/uL (4.8-10.8)
[2022-10-13 10:33] LABS: APPEARANCE,URINE CLEAR (CLEAR); BILIRUBIN,URINE NEGATIVE (NEGATIVE); COLOR,URINE LIGHT-YELLOW (YELLOW); GLUCOSE, URINE (UA) NEGATIVE (NEGATIVE); KETONES,URINE NEGATIVE (NEGATIVE); LEUKOCYTE ESTERASE ,URINE 250 Leu/uL (NEGATIVE); NITRATE,URINE NEGATIVE (NEGATIVE); OCCULT BLOOD,URINE NEGATIVE (NEGATIVE); PH,URINE 5.5 (5.0-8.0); PROTEIN,URINE NEGATIVE (NEGATIVE); UROBILINOGEN,URINE 0.2 mg/dL (0.2-1.0)
[2022-10-13 10:37] LABS: BACTERIA,URINE RARE /HPF (None Seen); MUCUS,URINE RARE LPF (None Seen); SQUAMOUS EPITHELIAL CELL,UR FEW /HPF (0-2); WBC,URINE 26-50 /HPF (0-1)
[2022-10-13 10:43] LABS: CREATININE 0.8 mg/dL (0.5-1.5); POTASSIUM 4.2 mmol/L (3.5-5.1)
[2022-10-13 10:45] LABS: INR 0.93 (0.85-1.15); PROTHROMBIN TIME 9.8 SEC (9.6-11.6)
[2022-10-13 10:46] LABS: PARTIAL THROMBOPLASTIN TIME 30.5 SEC (26.3-35.5)
[2022-10-17] VITALS (20 sets, daily range): BP systolic 114–191; BP diastolic 51–86
[~2022-10-17] VITALS: Ht 165.1 cm; Wt 79.6 kg
[~2022-10-17 06:45] MED LIST changes: +ACET-2743 PO; +ALBU90AE2 IH; +AMLO2.5T4 PO; +ATOR10 PO; +FAMO40TA7 PO; +FLUT16H NASAL; +FLUT1BLS3 IH; -GABA-529 PO; +GABA-533 PO; -LEVO-70 PO; +LORA10TA7 PO; +LOSA100T59 PO; -LOSA25TA41 PO; +MONT-39 PO; +MULT-1250 PO; -OMEP40CA21 PO; +PANT40TA54 PO; +SEMA2PEN SQ; -SIMV10TA97 PO; +VITA-388 PO; +probiotic PO
[2022-10-17] MEDS ORDERED: INDOCYANINE GREEN 25 MG VIAL IJ ONE (07:00)
[2022-10-17] MEDS ORDERED: CEFAZOLIN SODIUM 2 GM VIAL ONE (07:06)
[2022-10-17] MEDS ORDERED: 0.9%NACL 1000ML 1,000 ML IV ONE (07:06)
[2022-10-17] MEDS ORDERED: SUCCINYLCHOLINE 200MG/10ML SYR ONE (07:35)
[2022-10-17] MEDS ORDERED: PROPOFOL 10 MG/ML 20ML VIAL IV ONE (07:35)
[2022-10-17] MEDS ORDERED: LIDOCAINE PF 100MG/5ML (2%) SYRINGE 5ML ONE (07:35)
[2022-10-17] MEDS ORDERED: DEXAMETHASONE SOD PHOSPHATE 10MG/ML 1ML VIAL ONE (07:35)
[2022-10-17] MEDS ORDERED: ONDANSETRON 4MG INJ ONE (07:36)
[2022-10-17] MEDS ORDERED: ROCURONIUM 10MG/1ML SYR 10 MG/ML ML ONE (07:36)
[2022-10-17] MEDS ORDERED: MIDAZOLAM HCL 1 MG/ML 2ML VIAL ONE (07:36)
[2022-10-17] MEDS ORDERED: NEOSTIGMINE 5MG/5ML SYR IV ONE (07:36)
[2022-10-17] MEDS ORDERED: GLYCOPYRROLATE 1 MG/5 ML SYRINGE ONE (07:36)
[2022-10-17] MEDS ORDERED: FENTANYL CITRATE PF 50 MCG/1 ML 2ML VIAL ONE (07:37)
[2022-10-17] MEDS ORDERED: BUPIVACAINE/PF 0.5% 30ML VIAL ONE (07:41)
[2022-10-17] MEDS ORDERED: BUPIVACAINE/PF 0.5% 30ML VIAL INJ ONE (08:01)
[2022-10-17] MEDS ORDERED: CEFAZOLIN SODIUM 2 GM VIAL IVPB ONE (08:47)
[2022-10-17] MEDS ORDERED: MEPERIDINE-PF 25 MG/ML SYG ONE ×2 (09:11→09:57)
[2022-10-17] MEDS ORDERED: HYDRALAZINE 20MG/ML VIAL ONE (09:47)
== END 2022-10-17 11:55 | disposition home or self-care (01) ==
LOC: DAH 06:45
PROVIDERS: ATTEND Student in an Organized Health Care Education/Training Program
DX: K80.10 Calculus of gallbladder with chronic cholecystitis without obstruction (principal); I10 Essential (primary) hypertension; F41.9 Anxiety disorder, unspecified; G43.909 Migraine, unspecified, not intractable, without status migrainosus; G47.00 Insomnia, unspecified; Z88.1 Allergy status to other antibiotic agents; Z88.2 Allergy status to sulfonamides; Z20.822 Contact with and (suspected) exposure to COVID-19; Z79.899 Other long term (current) drug therapy; Z79.82 Long term (current) use of aspirin; Z98.890 Other specified postprocedural states; Z90.710 Acquired absence of both cervix and uterus; Z98.51 Tubal ligation status; Z79.01 Long term (current) use of anticoagulants
CPT/HCPCS: 47562; S2900; 36415; 80048; 81001; 82948; 85025; 85610; 85730; 87077; 87088; 87186; 87426; 93005; J0330; J0360; J1100; J2001; J2175; J2250; J2405; J2704; J2710; J3010; J3490; J7030

== ENCOUNTER 2023-04-21 16:05 | Emergency (ER) | payer OTHER ==
[~2023-04-21] VITALS: Ht 165.1 cm; Wt 78.5 kg
[~2023-04-21 16:05] MED LIST changes: -GABA-533 PO; +GABA-534 PO
[2023-04-21 16:20] VITALS: BP 153/82; PULSE 90; RESP 16; O2SAT 97
[2023-04-21] MEDS ORDERED: KETOROLAC 30MG VIAL (30MG/ML) IM ONE (18:00)
[2023-04-21] MEDS ORDERED: ACETAMINOPHEN WITH CODEINE 1 TAB TAB PO ONE (18:00)
[2023-04-21] MEDS ORDERED: M-SA237L TP (18:46)
[2023-04-21] MEDS ORDERED: LIDOP TP (18:46)
[2023-04-21] MEDS ORDERED: ONDANSETRON ODT 4MG TAB ONE (19:40)
[2023-04-21] MEDS ORDERED: PANTOPRAZOLE 40 MG TAB DR PO SCH (20:00)
[2023-04-21] MEDS ORDERED: PANTOPRAZOLE 40 MG/VIAL IVP ONE (20:00)
[2023-04-21] MEDS ORDERED: ONDANSETRON ODT 4MG TAB SL ONE (20:00)
== END 2023-04-21 21:01 | disposition home or self-care (01) ==
LOC: EDH 16:05
DX: M79.672 Pain in left foot (principal); I10 Essential (primary) hypertension; E11.9 Type 2 diabetes mellitus without complications; J45.909 Unspecified asthma, uncomplicated; M19.90 Unspecified osteoarthritis, unspecified site; K21.9 Gastro-esophageal reflux disease without esophagitis; F17.200 Nicotine dependence, unspecified, uncomplicated; Z79.82 Long term (current) use of aspirin; Z79.899 Other long term (current) drug therapy; Z98.890 Other specified postprocedural states; Z90.710 Acquired absence of both cervix and uterus; Z90.49 Acquired absence of other specified parts of digestive tract; Z88.2 Allergy status to sulfonamides; Z88.8 Allergy status to other drugs, medicaments and biological substances
CPT/HCPCS: 99284; 73630; 96372; 93005 ×2; J1885

== ENCOUNTER → 2023-07-24 | Outpatient (CLI) | payer OTHER ==
[~2023-07-24] MED LIST changes: +LIDOP TP; +M-SA237L TP
== END | disposition home or self-care (01) ==
LOC: RAH 09:26
PROVIDERS: ATTEND Family Medicine
DX: Z12.31 Encounter for screening mammogram for malignant neoplasm of breast (principal); R92.313 Mammographic fatty tissue density, bilateral breasts
CPT/HCPCS: 77067

== ENCOUNTER → 2024-07-25 | Outpatient (CLI) | payer OTHER ==
[~2024-07-25] MED LIST changes: -ALBU90AE2 IH; +ALBU90AE3 IH; +LEVO-70 PO; +MULT120T PO
--- NOTE | 2024-07-25 09:52 | HMCIMG ---
MAMMO SCREENING BILATERAL HISTORY: Screening mammogram. COMPARISON: 07/24/2023 TECHNIQUE: Bilateral screening mammogram with CAD was performed with craniocaudal and mediolateral oblique projections. FINDINGS: The breasts are almost entirely fatty. There is no evidence of a dominant mass, or suspicious microcalcification. There is no evidence of nipple retraction or skin thickening. IMPRESSION: 1. Stable mammogram. Patient was entered into a reminder system with a target due date for their next mammogram. BI-RADS: CATEGORY 2: BENIGN FINDINGS Recommend monthly self breast exam as well as annual clinical examination. A negative x-ray should not delay biopsy if a dominant or clinically suspicious mass is present, since 8-10% of cancers are not identified by mammography. Dense breasts particularly, may obscure an underlying neoplasm. Some of these may be detected clinically and therefore, clinical examination is an essential part of breast evaluation.
== END | disposition home or self-care (01) ==
LOC: RAH 08:43
PROVIDERS: ATTEND Nurse Practitioner Family
DX: Z12.31 Encounter for screening mammogram for malignant neoplasm of breast (principal); R92.30 Dense breasts, unspecified
CPT/HCPCS: 77067

== ENCOUNTER 2024-09-28 10:47 | Emergency (ER) | payer OTHER ==
[~2024-09-28] VITALS: Ht 165.1 cm; Wt 81.2 kg
--- NOTE | 2024-09-28 12:55 | HMCIMG ---
CT PELVIS W/O CONTRAST HISTORY: Status post fall COMPARISON: None TECHNIQUE: Multiple sequential axial images of the pelvis were obtained from the iliac crests through symphysis pubis. Patient was not given contrast through intravenous route. Oral contrast was not given. FINDINGS: Postoperative changes are seen on right proximal femur with orthopedic fixation peg causing artifact limiting evaluation. There is grade 2 anterolisthesis noted at L5-S1 level with central canal narrowing and displacement. There are normal sized pelvic and inguinal lymph nodes. Fecal material seen throughout the colon. Diverticula are seen within the colon consistent with diverticulosis. No ascites is seen. Atherosclerotic changes are present. Pelvic sidewalls are symmetric bilaterally. The bladder is poorly distended. IMPRESSION: 1. Postoperative changes are seen on right proximal femur with orthopedic fixation peg causing artifact limiting evaluation. There is grade 2 anterolisthesis noted at L5-S1 level with central canal narrowing and displacement. There CT was performed with one or more following dose reduction techniques: automated exposure control, adjustment of the mA and kv according to patient's size, or use of a iterative reconstruction technique.
--- NOTE | 2024-09-28 13:24 | HMCIMG ---
CT LUMBAR SPINE W/O CONTRAST HISTORY: Status post fall COMPARISON: None TECHNIQUE: Multiple sequential axial images of the lumbar spine were obtained including post processing sagittal and coronal reconstruction images. Patient was not given contrast through intravenous route. FINDINGS: There is grade 2 anterolisthesis at L5-S1 level with disc space narrowing. There are bilateral L5 pars defects. Central canal narrowing are seen at L4-5 and L5-S1 levels worse at L5-S1. There is atherosclerosis. There is no loss of vertebral height. Evaluation for disc and cord pathology is limited with CT study. No evidence of fracture or dislocation is seen. IMPRESSION: 1. Grade 2 anterolisthesis at L5-S1 level with central canal narrowing. There are bilateral L5 pars defects. CT was performed with one or more following dose reduction techniques: automated exposure control, adjustment of the mA and kv according to patient's size, or use of a iterative reconstruction technique.
--- NOTE | 2024-09-28 14:29 | ERN ---
General Chief Complaint: Low Back Pain/Injury Stated Complaint: LOWER BACK PAIN/INJURY ONE WEEK AGO Time Seen by MD: 10:51 Time Seen by Midlevel: 10:51 Source: patient History of Present Illness Initial Comments This is a 74-year-old female presenting to the emergency department with low back pain. She reports falling around one week ago. She states she fell on her bathtub and landed on her buttock area. Denies any head injury or loss of consciousness at that time. She has been having progressively worsening pain to her coccyx area. Denies any urinary/bowel incontinence. Denies any focal weakness to her lower extremities. Denies any numbness to her lower extremities. She wanted further evaluation given her persistent pain. Allergies: Coded Allergies: Sulfa (Sulfonamide Antibiotics) (Verified Allergy, Unknown, 11/19/17) cephalexin (Verified Allergy, Unknown, 11/19/17) Home Meds Active Scripts Levofloxacin (Levofloxacin) 500 Mg Tablet, 1 TAB PO DAILY for 5 Days, #5 TAB 0 Refills Prov:MASOUD GARCIA MD 03/11/24 M-Salicy/Aloe Vera/Men/Euc Oil ([place] Aloe Analgesic Liniment) 10 % Liniment, 11 APPL TP DAILY, #1 BOTTLE Prov:ALEX DYSON 04/21/23 Lidocaine (Lidoderm Patch 5%) 5 % Patch, 1 PATCH TP DAILY PRN for PAIN, #7 ADH.PATCH Prov:ALEX DYSON 04/21/23 Reported Medications Multivit-Minerals/Folic Acid (Centrum Adult 50 Fresh-Fruity) 120 Mcg Tab.chew, 120 MCG PO DAILY, TAB.CHEW 03/09/24 Acetaminophen (Tylenol Extra Strength) 500 Mg Tablet, 1000 MG PO AD PRN for PAIN, TAB 10/14/22 Fluticasone Propionate (Flonase Nasal Clements) 50 Mcg/[place] Clements, 1 SPRAY NASAL DAILY, SPRAY 10/14/22 Vitamin C/Biotin (Pagl-Yjie-Yqhcn Gummies) 1 Each Tab.chew, 2 EACH PO HS, TAB.CHEW 10/14/22 [probiotic] No Conflict Check, 2 GUM PO HS 10/14/22 Semaglutide (Ozempic) 2 Mg/0.75 Ml Pen.injctr, 0.5 MG SQ weekly 10/14/22 Amlodipine Besylate (Amlodipine Besylate) 2.5 Mg Tablet, 2.5 MG PO DAILY, TAB 09/11/22 Albuterol Sulfate (Proair Digihaler) 90 Mcg Aer.pw.bas, 2 PUFF IH Q6HPRN PRN for SHORTNESS OF BREATH 09/11/22 Fluticasone/Umeclidin/Vilanter (Trelegy Ellipta 100-62.5-25) 1 Each Blst.w.dev, 1 EACH IH DAILY 09/11/22 Multivits-Min/Iron/FA/Lutein (Centrum Silver Women Tablet) 1 Each Tablet, 1 EACH PO DAILY, TAB 09/11/22 Famotidine (Famotidine) 40 Mg Tablet, 40 MG PO HS, TAB 09/11/22 Pantoprazole Sodium (Pantoprazole Sodium) 40 Mg Tablet.dr, 40 MG PO DAILY, TAB 09/11/22 Gabapentin (Gabapentin) 400 Mg Capsule, 400 MG PO BID, CAP 09/11/22 Montelukast Sodium (Montelukast Sodium) 10 Mg Tablet, 10 MG PO DAILY, TAB 09/11/22 Atorvastatin Calcium (LIPITOR) 10 Mg Tab, 10 MG PO HS, TAB 09/11/22 Losartan Potassium (Losartan Potassium) 100 Mg Tablet, 100 MG PO DAILY, TAB 09/11/22 Loratadine (Loratadine) 10 Mg Tablet, 10 MG PO DAILY, TAB 09/11/22 Oxybutynin Chloride (Oxybutynin Chloride ER) 10 Mg Tab.er.24, 10 MG PO DAILY 12/02/20 Metoprolol Tartrate (Metoprolol Tartrate) 50 Mg Tablet, 50 MG PO BID, TAB 11/20/17 Aspirin (ASPIRIN 81 MG ECTAB) 81 Mg Ectab, 81 MG PO DAILY, TAB.EC 11/20/17 Past Medical History Past Medical History: Arthritis, Asthma, Diabetes-Type II, Diverticulitis, Diverticulosis, Gallstones, GERD, Hypertension Medical History Other: BACK FRACTURE Past Surgical History: Hysterectomy, Cholecystectomy, Other, BTL Surgical History Other: HIP SURGERY, CATARACT SURGERY Social History Social History: Smokers ROS Dictation CONSTITUTIONAL: Negative except for HPI HEAD/FACE: Negative except for HPI EENT: Negative except for HPI RESPIRATORY: Negative except for HPI GASTROINTESTINAL/ABDOMINAL: Negative except for HPI GENITOURINARY: Negative except for HPI MUSCULOSKELETAL: Negative except for HPI INTEGUMENTARY: Negative except for HPI NEUROLOGICAL/PSYCH: Negative except for HPI HEMATOLOGIC/LYMPHATIC: Negative except for HPI All Systems Negative, Except as noted above. 13 point review of systems assessed and all negative except for above. Physical Exam Physical Exam Dictation Vital Signs reviewed General Appearance: Alert, oriented x 3, no acute distress, well developed, nourished. Head and Face: non-traumatic. Eyes: PERRL, pink conjunctivas, eyelid no trauma, anterior chamber with arcus senilis. Ears: Pinnas intact and no signs of trauma or erythema ear canals clear and no discharge TM no erythema Nose: No discharge, no bleeding. Oropharynx: Mouth normal, tongue pink, pharynx clear,no erythema, tonsils no exudates, no abscesses noted, mucous membrane moist Neck: Supple, non-tender, no thyromegaly, no masses, no JVD, no bruits Breast:Deferred Chest:No tenderness, no crepitus, no paradoxical movement, no retractions Lungs:Clear, well-ventilated, symmetric, no rales, no wheezing, no rhonchi, no stridor, good breath sounds bilaterally Heart: Regular rate, regular rhythm, no murmur, no gallops Vascular: no peripheral edema, Abdomen: Soft, positive bowel sounds, nondistended, no guarding, nontender, no rebound, no masses no hepatomegaly, no splenomegaly, no Mariee's sign, no hernias. Rectal: Deferred Genital: Deferred Neurological: Normal speech, motor function intact, sensory function intact Musculoskeletal: Neck nontender, full range of motion, back nontender, full range of motion, Extremities: nontender, full range of motion Skin: Color pink, dry, no turgor, no rash, no lacerations, no abrasions, no contusions. Lymphatic: Deferred MDM MDM: This is a 74-year-old female presenting to the emergency department with low back pain. She reports falling around one week ago. She states she fell on her bathtub and landed on her buttock area. Denies any head injury or loss of consciousness at that time. She has been having progressively worsening pain to her coccyx area. Denies any urinary/bowel incontinence. Denies any focal weakness to her lower extremities. Denies any numbness to her lower extremities. She wanted further evaluation given her persistent pain. On physical examination the patient is ambulatory with the assistance of her cane however she has a normal gait. She has no neurological deficits she has no red flag symptoms. CT scan of the lumbar and pelvis was obtained which shows postoperative changes on the right proximal future with orthopedic fixation. There is a grade two anterolisthesis noted at L5-S1 with a central canal n arrowing and is placement. CT lumbar reveals grade 2 anterolisthesis at L5-S1 level with central canal narrowing. Given that the patient has no red flag symptoms or acute neurological deficits she will need to follow up outpatient. Differential diagnosis: Fracture, dislocation, contusion There are no social concerns with this patient. Prescription drug management Prescriptions will include: None Medical management and examination interpretation discussions were had by me with other qualified healthcare professionals as indicated for the patient's care. ED Course Orders Procedure Category Date Status Time Ct Lumbar Spine W/O CT 09/28/24 Resulted Contrast 11:15 Ct Pelvis W/O Contrast CT 09/28/24 Resulted 11:15 Vital Signs Date Time Temp Pulse Resp B/P (MAP) Pulse Ox O2 Delivery O2 Flow Rate FiO2 09/28/24 12:28 97.9 83 16 166/87 95 Room Air* 0 21 09/28/24 10:49 97.9 83 16 166/87 95 0 DX & DISP Disposition: Discharge Departure Impression: Primary Impression: Lumbar pain Additional Impressions: Fall, Anterolisthesis of lumbar spine Condition: Stable Referrals: SHANNAN CASILLAS MD (PCP) Time of Disposition: 14:28 I have reviewed the case, and I agree with, Diagnosis and Plan I performed the substantive portion of the visit. I have reviewed and personally made and approve the management plan that is documented in the note by myself or the EUSEBIO. I acknowledge for responsibility for the patient's management plan. MALLORY MUNGUIA September 28, 2024 14:29 DUSTIN HAYWARD DO September 28, 2024 14:33
[2024-09-28 14:35] VITALS: BP 148/74; PULSE 80; RESP 16; TEMP 97.9; O2SAT 95
[2024-09-28] MEDS: ketOROlac 15MG/ML VIAL (15MG/ML) IM ONE (14:51)
== END 2024-09-28 14:57 | disposition home or self-care (01) ==
LOC: EDH 10:47
DX: M54.50 Low back pain, unspecified (principal); M43.17 Spondylolisthesis, lumbosacral region; E11.9 Type 2 diabetes mellitus without complications; F17.200 Nicotine dependence, unspecified, uncomplicated; I10 Essential (primary) hypertension; J45.909 Unspecified asthma, uncomplicated; M19.90 Unspecified osteoarthritis, unspecified site; Z79.82 Long term (current) use of aspirin; Z79.85 Long-term (current) use of injectable non-insulin antidiabetic drugs; Z79.899 Other long term (current) drug therapy; Z88.1 Allergy status to other antibiotic agents; Z88.2 Allergy status to sulfonamides; Z90.49 Acquired absence of other specified parts of digestive tract; Z90.710 Acquired absence of both cervix and uterus
CPT/HCPCS: 99285; 72131; 72192; 96372; J1885